=== PATIENT | male | born 1985 | race Hispanic/Latino ===

== ENCOUNTER 2022-09-20 10:40 | Emergency (ER) | payer OTHER ==
[~2022-09-20] VITALS: Ht 180.3 cm; Wt 86.0 kg
[2022-09-20] VITALS (7 sets, daily range): BP systolic 119–142; BP diastolic 77–92
[2022-09-20] MEDS ORDERED: NAPROXEN500 MG PO (12:46)
== END 2022-09-20 12:34 | disposition home or self-care (01) | DRG 563 ==
LOC: ED 10:40
DX: S63.602A Unspecified sprain of left thumb, initial encounter (principal); W22.8XXA Striking against or struck by other objects, initial encounter

== ENCOUNTER 2022-12-22 09:45 | Emergency (ER) | payer OTHER ==
[2022-12-22] VITALS (8 sets, daily range): BP systolic 118–136; BP diastolic 82–98
[~2022-12-22] VITALS: Ht 180.3 cm; Wt 87.0 kg
[~2022-12-22 09:45] MED LIST: NAPROXEN500 MG PO
[2022-12-22] MEDS ORDERED: CYCLOBENZAPRINE10 MG PO (13:15)
[2022-12-22] MEDS ORDERED: IBUPROFEN600 MG PO (13:15)
== END 2022-12-22 13:27 | disposition home or self-care (01) | DRG 552 ==
LOC: ED 09:45
DX: M54.2 Cervicalgia (principal); W14.XXXA Fall from tree, initial encounter